=== PATIENT | male | born 1985 | race Caucasian/White ===

== ENCOUNTER 2018-02-10 11:17 | Day surgery (SDC) | payer OTHER ==
--- NOTE | 2018-01-29 16:44 | HP ---
CC: Dr. Singh at [facility]; Dr. Hernandez Wren * ADMISSION HISTORY AND PHYSICAL: DATE OF ADMISSION: 02/10/18 ATTENDING SURGEON: Dr. Raphael Solomon.* (DICTATED BY BOUBACAR DE LA CRUZ) CHIEF COMPLAINT: Umbilical hernia. HISTORY OF PRESENT ILLNESS: This is a 32-year-old male who first noted presence of an umbilical bulge a bit over a year ago. It has increased gradually in size and has been occasionally associated with some discomfort, though nothing to suggest incarceration or strangulation. He specifically denies any GI symptoms. He was seen initially by Dr. Solomon in April 2017, at which time exam confirmed the presence of a small reducible umbilical hernia. In the interim, the patient was diagnosed with testicular cancer ( early stage seminoma) and underwent left orchiectomy on 05/05/[address] Wren. The patient returned recently for reevaluation with Dr. Solomon. He also had some concern in terms of the possibility of a left inguinal hernia because of persistent pain in the left groin. Exam at that time again showed a umbilical hernia as well as a well-healed left inguinal incision with absent testis and no palpable hernia. The patient understands the indications for repair, the risks, benefits, and alternatives. He understands the potential use of mesh. He would like to proceed as scheduled with open umbilical hernia repair (the patient had originally been scheduled for concurrent penile implant placement, but that will be deferred until after consultation in [place]). PAST MEDICAL HISTORY: Testicular cancer as noted above. No other significant past or active medical history (he was treated for insomnia and anxiety). PAST SURGICAL HISTORY: Left orchiectomy and wisdom teeth extraction. No reported surgical or anesthesia complications. CURRENT MEDICATIONS: 1. Zolpidem 10 mg at h.s. p.r.n. insomnia (uses approximately every other night ). 2. Alprazolam 0.25 mg p.r.n. anxiety (uses infrequently). 3. Ibuprofen p.r.n. He also takes the following supplements: 1. Flaxseed oil. 2. Multivitamin. 3. Vitamin D. 4. Vitamin C. 5. B complex. DRUG ALLERGIES: None known. FAMILY HISTORY: Noncontributory in terms of anesthesia problems, bleeding, or clotting disorder. SOCIAL HISTORY: The patient is . 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 He is a former smoker from ages 16 to 25, but then quit at that time. He drinks on average 2 to 3 drinks per day. He uses occasional marijuana, but no other recreational drugs. REVIEW OF SYSTEMS: General: No recent constitutional symptoms or acute illnesses. Weight has been stable. HEENT: No problems reported. Cardiovascular: No chest pain, palpitations, history of hypertension, or heart murmur. Respiratory: No history of asthma, chronic cough, or shortness of breath. GI: No problems reported. : No problems reported other than treatment in the past year for left testicular cancer (surgery only). He is followed regularly with CT surveillance. Tentative plan for penile implant. Endocrine: No diabetes or thyroid dysfunction. Hematological/Oncological: Testicular cancer as above. Remainder of review of systems is negative. PHYSICAL EXAMINATION GENERAL: Well-nourished, well-developed male, in no acute distress. VITAL SIGNS: Height 5 feet 8 inches, weight 194 pounds, temperature 98.3, blood pressure 116/70, pulse 62. HEENT: Pupils equal and round, reactive. EOMs intact. No conjunctival pallor. Oropharynx: Teeth in good repair. No intraoral lesions. NECK: No lymphadenopathy, thyromegaly, or masses. No palpable supraclavicular lymphadenopathy. LUNGS: Clear to auscultation. No wheezes. HEART: Regular rate and rhythm. No murmur noted. ABDOMEN: Visible bulge at the umbilicus, which is soft, nontender, and easily reducible, down to a fingertip size defect. The remainder of the abdomen is soft, nontender and without palpable masses or organomegaly. GENITALIA: Not done. RECTAL: Not done. BACK: No spinous process or CVA tenderness. EXTREMITIES: No edema. NEUROLOGICAL: Grossly intact. SKIN: Warm and dry. No suspicious rashes or lesions noted. IMPRESSION: Umbilical hernia. PLAN: Open repair of umbilical hernia. BOUBACAR DE LA CRUZ [id number]/[facility] #: [id number] [facility]
[~2018-02-10 11:17] MED LIST: Buffered Lidocaine 0.9% SYRIN* 5 ML/SYR SYRINGE INTRADERM ONE; Famotidine IV* 10 MG/ML 2 ML (20 mg) IV ONE
[2018-02-10] MEDS ORDERED: Midazolam* 1 MG/ML 5 ML VIAL (5 MG) ONE (11:34)
[2018-02-10] MEDS ORDERED: fentaNYL* 50 MCG/ML 2 ML VIAL (100 MCG VIAL) ONE (11:34)
[2018-02-10] MEDS ORDERED: Famotidine IV* 10 MG/ML 2 ML (20 mg) ONE (12:23)
[2018-02-10] MEDS ORDERED: Lidocaine 1% MPF wEPI 200,000* 30 ML SDV ONE (13:04)
[2018-02-10] MEDS ORDERED: Bupivacaine 0.5% PF 10 ML VIAL INJ ONE (13:04)
[2018-02-10] MEDS ORDERED: ceFAZolin 2 GM PREMIX (*) 2 GM/50 ML BAG IVPB ONE (13:27)
[2018-02-10] MEDS ORDERED: Ondansetron INJ* 2 MG/ML VIAL ONE (13:37)
[2018-02-10] MEDS ORDERED: Ketorolac INJ* 30 MG/ML 1 ML VIAL ONE (13:37)
[2018-02-10] MEDS ORDERED: Propofol* 10 MG/ML 20 ML BTL IV PUSH ONE (13:37)
[2018-02-10] MEDS ORDERED: KETAMINE HCL* 50 MG/ML 10 ML VIAL ONE (13:37)
[2018-02-10] MEDS ORDERED: Midazolam* 1 MG/ML 2 ML VIAL (2 MG) ONE (14:01)
[2018-02-10] MEDS ORDERED: Acetaminophen TAB* 325 MG PO PRN (14:11)
[2018-02-10] MEDS ORDERED: Naloxone* 0.4 MG/ML 1 ML VIAL IV PRN (14:11)
[2018-02-10] MEDS ORDERED: HYDROmorphone INJ* 0.5 MG/0.5 ML SYRINGE IV PRN (14:11)
[2018-02-10] MEDS ORDERED: oxyCODONE TAB* 5 MG TAB PO PRN (14:11)
[2018-02-10] MEDS ORDERED: DiMENhydriNATE IV* 50 MG/ML VIAL IV PUSH PRN (14:11)
--- NOTE | 2018-02-10 14:29 | BRIEFOPN ---
Brief Operative Note - Surgery Procedures: PRE/POSTOP DX: UMBILICAL HERNIA PROC: OPEN REPAIR UMBILICAL HERNIA SURG: MECENAS ANES: LOCAL/MAC; FLOR EBL: MIN SPEC: NONE DRAIN/COMP: NONE COND: STABLE TO RR FINDINGS: 2CM.
[2018-02-10 14:46] VITALS: BP 123/72
--- NOTE | 2018-02-10 22:28 | OP ---
CC: Dr. Michael Singh * DATE OF OPERATION: 02/10/18 - [facility] DATE OF : 81 SURGEON: Raphael Solomon MD MOTEL CLERK: None. ANESTHESIOLOGIST: Felicia Beaver MD ANESTHESIA: Local MAC. PRE-OP DIAGNOSIS: Umbilical hernia. POST-OP DIAGNOSIS: Umbilical hernia. OPERATIVE PROCEDURE: Open repair umbilical hernia. ESTIMATED BLOOD LOSS: Minimal. IV FLUIDS: Crystalloid. SPECIMEN: None. DRAIN: None. COMPLICATIONS: None. COUNTS: The instrument, needle, and sponge counts were correct. DESCRIPTION OF PROCEDURE: The patient was brought to the operating room and placed on the table supine. Sequential compression devices were placed on both lower extremities. He was administered intravenous sedation. His abdomen was prepped and draped in the usual sterile fashion. A time-out was performed. Local anesthetic was infiltrated periumbilically and a curvilinear infraumbilical incision was created. Subcutaneous tissues were divided sharply with cautery. The umbilical stalk was dissected free from the umbilical hernia sac. The edges of the defect were identified. Sac was completely reduced. Defect was 2 cm in size and decision was made to perform a primary repair. After cleaning the edges of the defect, the hernia was closed transversely with 0 Ethibond suture using 2 sutures in [id number] fashion to close the defect. The umbilical stalk was reapproximated in anterior fashion with 3-0 Vicryl, then the wound was closed in 2 layers with 3-0 Vicryl for the subcutaneous tissue, 4-0 Monocryl for the skin edge. Pressure dressing with 4x4 gauze were applied. The patient tolerated the procedure well, was awakened, and transferred to recovery in stable condition. [id number]/[facility] #: [id number] [facility]
== END 2018-02-10 15:05 | disposition home or self-care (01) ==
LOC: OR 11:17
PROVIDERS: ATTEND Surgery
DX: K42.9 Umbilical hernia without obstruction or gangrene (principal); Z85.47 Personal history of malignant neoplasm of testis
CPT/HCPCS: J0690; J1885; J2001; J2250; J2405; J2704; J3010